=== PATIENT | female | born 1980 | race Two or more races ===

== ENCOUNTER 2024-10-12 07:25 | Emergency (ER) | payer BC, SELFPAY ==
[2024-10-12 07:33] VITALS: BP 107/68
--- NOTE | 2024-10-12 10:28 | ED.GENMED ---
History of Present Illness
General
Chief Complaint: DVT/Possible Blood Clot
Time Seen by Provider: 10/12/24 09:42
History of Present Illness
History of Present Illness:
44-year-old female presents to the ER for evaluation of right lower leg pain and swelling which started 2 days ago. Patient denies any direct injury or trauma, but reports that she felt abrupt sharp onset of pain while rolling over in bed. She did
recently travel with her family via car to [place]. She has no prior personal history of venous thromboembolic disease. She denies any chest pain or shortness of breath. She noted localized redness and swelling to the posterior aspect of her
ankle. She has not been taking any pain relievers for her symptoms. She notes pain is worse with walking. She denies any prior history of similar symptoms. She denies .
Past History
Past History
ED Past Medical History: None
Phy Exam
Physical Exam
Physical Exam:
Patient is awake, alert, appears in no acute distress, moving easily on the stretcher without assistance, no increased work of breathing, his membranes moist, GCS is 15, bilateral lower extremity examination reveals no calf pain on palpation, no
swelling, localized painful swelling noted overlying the muscular aspect of the proximal Achilles tendon, no deformity noted on palpation left Achilles versus right Achilles, no excessive warmth, negative Callahan's test, 2+ DP pulses present
symmetric bilateral feet with brisk cap refill to the toes, no weakness in plantar or dorsiflexion, patient notes pain with active range of motion of the right foot in comparison to the left foot, no increased calf circumference right lower
extremity versus left lower extremity
Course
Orders/Labs/Results
Orders:
Orders
10/12/24 07:41
US Periph Venous LOWER Ext RT Urgent
Comment:
Reason For Exam: pain swelling to R calf ankle region
10/12/24 09:51
boot [Ortho Boot Right- Treatment] ONCE
Short or tall?: Tall
Vital Signs
Initial and Last Documented VS:
Initial Vital Signs
Temp Pulse BP Pulse Ox
98.2 F 69 107/68 98
10/12/24 07:33 10/12/24 07:33 10/12/24 07:33 10/12/24 07:33
Last Documented Vital Signs
Temp Pulse Resp BP Pulse Ox
98.2 F 69 18 107/68 98
10/12/24 07:33 10/12/24 07:33 10/12/24 09:44 10/12/24 07:33 10/12/24 07:33
MDM/Problems Addressed
Differential Diagnosis Includes:
Calf strain, DVT, Achilles injury, strain, localized skin inflammation
*Radiology
Radiology exam reviewed: radiology read reviewed
*Pulse Oximetry
SaO2: 98
Oxygen Mode of Delivery: Room air
Patient hypoxic: no
*Critical Care Note
Total Time (30-74mins, 75-104mins- exclusive of procedures): Not Applicable
Update Note
Update Note:
I discussed with patient and present bedside negative ultrasound of the right lower extremity-no evidence for DVT. I discussed with the more likely etiology symptoms related to local irritation/inflammation-possible contusion versus
tendinopathy but no discrete evidence for injury to the Achilles tendon. For patient comfort, will provide boot along with local orthopedic referral information. I discussed with him use of high-dose ibuprofen, ice, elevation and need for close
outpatient follow-up. They expressed understanding of discharge plan and had no questions prior to leaving department.
ED Attending Note
-
Portions of this chart may have been created with voice recognition software.� Occasional wrong word or��sound alike� substitutions may have occurred due to the inherent limitations of voice recognition software.
Discharge Plan
Departure
Patient Disposition: Home (Routine Discharge)
Date of Disposition: 10/12/24
Time of Disposition: 09:52
Patient with high blood pressure during this ER visit?: No
Condition: Good
Discharge Problem:
Acute ankle pain
Instructions: Achilles Tendinopathy (DC)
Prescriptions:
New
ibuprofen 800 mg tablet
800 mg PO TID Qty: 15 0RF
Referrals:
Lucho Pagan MD [Active, Orthopedics]
Activity Restrictions/Additional Instructions:
Wear boot for support while active for the next 2 days until you are seen in follow up with either your PCP or orthopedics. Please take ibuprofen as prescribed. Elevate your foot and apply ice for 20 minutes 3-4 times daily to help with pain and
swelling. Return to the ER for any concern
Interventions
Interventions:
*Risk Screen - Suicide Last Done: 10/12/24 07:38
*General Assessment Last Done: 10/12/24 07:38
*Neglect/Abuse Screening Last Done: 10/12/24 09:45
*ED- Fall Risk Assessment Last Done: 10/12/24 09:40
*ED COVID-19 Vaccine History Last Done: 10/12/24 07:38
*Nursing Disposition Last Done: 10/12/24 10:10
ED- Cardiac Assessment Last Done: 10/12/24 09:41
ED- Pulmonary Assessment Last Done: 10/12/24 09:42
ED-Peripheral Vascular Assessment Last Done: 10/12/24 09:42
ED-Skin Assessment Last Done: 10/12/24 09:43
Discharge Date and Time
Discharge Date/Time: 10/12/24 10:11
Print Language: [id number]
== END 2024-10-12 10:11 | disposition home or self-care (01) ==
LOC: EMR 07:25
PROVIDERS: EMERGENCY PHYSICIAN Emergency Medicine
DX: M25.571 Pain in right ankle and joints of right foot (principal); M79.661 Pain in right lower leg
CPT/HCPCS: 93971; 99284